=== PATIENT | female | born 1990 | race Two or more races ===

== ENCOUNTER 2016-08-24 11:37 | Emergency (ER) | payer SELFPAY ==
[~2016-08-24 11:37] MED LIST: BCP; CALCIUM STOOL240 MG PO; IBUPROFEN800 MG PO; NORCO 5/325 TAB1 TAB PO; OXYCODONE/APAP PO; PRENATAL1 EACH PO; PRENATAL1 TAB PO; ZANTAC15 PO
[2016-08-24] MEDS ORDERED: [UNRECOGNIZED DRUG - REMARK] (11:42)
== END 2016-08-24 12:11 ==
LOC: EDMED 11:37
PROC: 2W3JX1Z Immobilization of Right Finger using Splint (ICD-10-PCS; principal; 2016-08-24)
DX: S61.210D Laceration without foreign body of right index finger without damage to nail, subsequent encounter (principal); F17.210 Nicotine dependence, cigarettes, uncomplicated; W25.XXXD Contact with sharp glass, subsequent encounter